=== PATIENT | male | born 1970 | race Caucasian/White ===

== ENCOUNTER 2021-07-30 16:41 | Emergency (ER) | payer OTHER ==
[~2021-07-30] VITALS: Ht 188 cm; Wt 95.2 kg
[2021-07-30] MEDS ORDERED: ALDACTONE25 MG PO (17:00)
[2021-07-30] MEDS ORDERED: TOPROL XL50 MG PO (17:00)
[2021-07-30] MEDS ORDERED: ENTRESTO 24 MG1 EACH PO (17:00)
[2021-07-30] MEDS ORDERED: FUROSEMIDE20 MG PO (17:00)
[2021-07-30] MEDS ORDERED: CEPHALEXIN500 M1 PO (17:51)
== END 2021-07-30 18:01 | disposition home or self-care (01) ==
LOC: ED 16:41
DX: L73.9 Follicular disorder, unspecified (principal); I50.9 Heart failure, unspecified; Z79.899 Other long term (current) drug therapy
CPT/HCPCS: 99282; A9270